=== PATIENT | female | born 1980 | race Caucasian/White ===

== ENCOUNTER 2020-12-18 21:16 | Emergency (ER) | payer OTHER ==
[~2020-12-18] VITALS: Ht 154.9 cm; Wt 60.8 kg
[~2020-12-18 21:16] MED LIST: ADULT TUSS100 MG/5 M PO; ALLEGRA-D1 TAB.SR . PO; IOPHEN DM-100 MG/5 M PO; ORPH100T PO
[2020-12-19] MEDS ORDERED: SINGULAIR10 MG PO (05:32)
[2020-12-19] MEDS ORDERED: ZYRTEC10 M2 PO ×2 (05:33)
[2020-12-19] MEDS ORDERED: SYMBICORT 16010.2 GM IH ×2 (05:33)
== END 2020-12-19 05:35 ==
LOC: ER 21:16
DX: J45.902 Unspecified asthma with status asthmaticus (principal); Z20.822 Contact with and (suspected) exposure to COVID-19

== ENCOUNTER 2021-01-25 05:45 | Emergency (ER) | payer OTHER ==
[~2021-01-25] VITALS: Ht 154.9 cm; Wt 61.7 kg
[~2021-01-25 05:45] MED LIST changes: +SINGULAIR10 MG PO; +SYMBICORT 16010.2 GM IH; +ZYRTEC10 M2 PO
== END 2021-01-25 13:52 | disposition home or self-care (01) ==
LOC: ER 05:45
DX: K52.89 Other specified noninfective gastroenteritis and colitis (principal); R10.84 Generalized abdominal pain; Z03.818 Encounter for observation for suspected exposure to other biological agents ruled out

== ENCOUNTER 2021-06-14 09:07 | Emergency (ER) | payer OTHER ==
[~2021-06-14] VITALS: Ht 154.9 cm; Wt 62.6 kg
[2021-06-14] MEDS ORDERED: SINGULAIR 10MG10 MG PO (09:15)
== END 2021-06-14 14:10 | disposition home or self-care (01) ==
LOC: ER 09:07
DX: N83.209 Unspecified ovarian cyst, unspecified side (principal); R10.2 Pelvic and perineal pain

== ENCOUNTER 2022-07-04 18:50 | Emergency (ER) | payer OTHER ==
[~2022-07-04] VITALS: Ht 154.9 cm; Wt 59.4 kg
[~2022-07-04 18:50] MED LIST changes: +SINGULAIR 10MG10 MG PO
== END 2022-07-04 21:11 | disposition home or self-care (01) ==
LOC: ER 18:50
DX: R14.3 Flatulence (principal); Z88.2 Allergy status to sulfonamides; Z88.8 Allergy status to other drugs, medicaments and biological substances

== ENCOUNTER 2025-09-29 17:02 | Emergency (ER) | payer OTHER ==
[~2025-09-29] VITALS: Ht 154.9 cm; Wt 64.4 kg
[2025-09-29 19:28] LABS: BASO % 1.0 % (0.1-1.2); EOS # 0.24 (0.04-0.54); EOS % 3.0 % (0.7-7.0); LYMPH # 2.31 (1.18-3.74); LYMPH % 28.8 % (19.3-53.1); MEAN PLATELET VOLUME 9.70 fl (9.4-12.4); MONO # 0.51 (0.24-0.82); MONO % 6.4 % (4.7-12.5); NEUT # 4.86 (1.56-6.13); NEUT % 60.6 % (34.0-71.1); RED CELL DISTRIBUTION WIDTH 14.2 % (11.6-14.4)
[2025-09-29 20:32] LABS: INR < 0.93
[2025-09-29 20:45] LABS: ALT/SGPT 17.0 U/L (12-78); AST/SGOT 13.0 U/L (15-37); BILIRUBIN TOTAL 0.4 mg/dL (0.3-1.2); BUN CREA RATIO 14.0 (7.0-25.0); CREATININE SERUM 0.59 mg/dL (0.55-1.02); GFR 110.22; GLOBULINA 2.7 G/DL (2.4-3.5); GLUCOSE FASTING 99.0 mg/dL (65-100); OSMOLALITY SERUM 280.0 MOSM/KG (275-295)
[2025-09-29 21:12] LABS: URINE APPEARANCE Clear; URINE BILIRRUBIN Negative (NEGATIVE); URINE BLOOD Negative; URINE COLOR Yellow; URINE GLUCOSE Negative (NEGATIVE); URINE KETONE Trace (NEGATIVE); URINE LEUKOCYTE Negative; URINE NITRATE Negative; URINE PROTEIN Negative (NEGATIVE); URINE UROBILINOGEN 1.0 E.U./dl
[2025-09-29 21:16] LABS: URINE BACTERIA 19.1 uL (0.0-1933); URINE EPITHELIAL CELLS 14.4 uL (0.0-38.8); URINE RBC 15.5 uL (0.0-20.8); URINE WBC 5.2 uL (0.0-23.2)
[2025-09-29 21:32] LABS: URINE CAST 0.14 uL (0.0-1.40)
== END 2025-09-29 22:39 | disposition home or self-care (01) ==
LOC: ER 17:02
PROVIDERS: General Practice
DX: O20.8 Other hemorrhage in early pregnancy (principal); Z3A.01 Less than 8 weeks gestation of pregnancy; Z88.2 Allergy status to sulfonamides; Z88.6 Allergy status to analgesic agent